=== PATIENT | male | born 1970 | race African-American/Black ===

== ENCOUNTER 2024-12-24 08:46 | Emergency (ER) | payer BC ==
[~2024-12-24] VITALS: Ht 182.9 cm; Wt 85.5 kg
[2024-12-24 08:50] VITALS: PULSE 74; RESP 20; TEMP 97.3
[2024-12-24] MEDS ORDERED: IBUPROFEN 600 MG TAB ONE (09:29)
[2024-12-24] MEDS: IBUPROFEN 600 MG TAB PO STA (09:32)
[2024-12-24 11:00] VITALS: BP 174/91; PULSE 61; RESP 20; TEMP 98.3; O2SAT 98
== END 2024-12-24 10:56 | disposition home or self-care (01) ==
LOC: FSED 08:58
DX: M25.561 Pain in right knee (principal); S80.01XA Contusion of right knee, initial encounter; X50.1XXA Overexertion from prolonged static or awkward postures, initial encounter; Y92.89 Other specified places as the place of occurrence of the external cause; F17.210 Nicotine dependence, cigarettes, uncomplicated
CPT/HCPCS: 99284

== ENCOUNTER 2024-12-28 10:35 | Emergency (ER) | payer BC ==
[~2024-12-28] VITALS: Ht 182.9 cm; Wt 87.2 kg
[2024-12-28 10:40] VITALS: PULSE 71; RESP 20; TEMP 97.7; O2SAT 98
[2024-12-28] MEDS: KETOROLAC TROMETHAMINE 60 MG/2 ML VIAL IM ONE (10:57)
== END 2024-12-28 11:34 | disposition home or self-care (01) ==
LOC: FSED 10:46
DX: S80.01XA Contusion of right knee, initial encounter (principal); M17.0 Bilateral primary osteoarthritis of knee; F17.210 Nicotine dependence, cigarettes, uncomplicated
CPT/HCPCS: 99284; J1885